=== PATIENT | male | born 1950 | race Caucasian/White ===

== ENCOUNTER 2020-04-30 06:47 | Outpatient (NON) | payer MEDICARE, SELFPAY ==
[2020-05-01 02:13] LABS: SARS-CoV-2 RNA PCR Negative
== END 2020-04-30 06:48 ==
PROVIDERS: PCP Internal Medicine; Visit Provider Internal Medicine
DX: R05 Cough (principal); R50.9 Fever, unspecified; Z20.828 Contact with and (suspected) exposure to other viral communicable diseases
CPT/HCPCS: 87635; C9803; U0003